=== PATIENT | male | born 1950 | race Caucasian/White ===

== ENCOUNTER 2017-04-15 12:41 | Emergency (ER) | payer MEDICAID ==
[~2017-04-15] VITALS: Ht 172.7 cm; Wt 58.1 kg
[~2017-04-15 12:41] MED LIST: CITA20TA9 PO; DIVA500T2 PO; PHEN50TA4 PO; TOPI100T24 PO
[2017-04-15 12:51] VITALS: BP 117/78
[2017-04-15] MEDS ORDERED: DIPH,PERTUSS(ACELL),TET VAC/PF 0.5 ML IM-VACC ONE ×2 (13:00→13:17)
[2017-04-15] MEDS ORDERED: ACETAMINOPHEN 500 MG TABLET PO ONE (13:00)
[2017-04-15] MEDS ORDERED: ACETAMINOPHEN 500 MG TABLET ONE (13:17)
[2017-04-15 13:20] LABS: HEMATOCRIT 44.2 % (39.2-51.8); HEMOGLOBIN 14.8 g/dL (13.7-18.0); WHITE BLOOD COUNT 6.4 x10^3/uL (3.4-10)
[2017-04-15 13:31] LABS: BLOOD UREA NITROGEN 24 mg/dL (7-18)
== END 2017-04-15 14:32 | disposition home or self-care (01) ==
LOC: ED 14:24
DX: S09.90XA Unspecified injury of head, initial encounter (principal); S00.01XA Abrasion of scalp, initial encounter; S40.211A Abrasion of right shoulder, initial encounter; G40.909 Epilepsy, unspecified, not intractable, without status epilepticus; F03.90 Unspecified dementia, unspecified severity, without behavioral disturbance, psychotic disturbance, mood disturbance, and anxiety; W01.0XXA Fall on same level from slipping, tripping and stumbling without subsequent striking against object, initial encounter; Y93.01 Activity, walking, marching and hiking; Y92.89 Other specified places as the place of occurrence of the external cause; Y99.8 Other external cause status; Z86.73 Personal history of transient ischemic attack (TIA), and cerebral infarction without residual deficits
CPT/HCPCS: 36415; 70450; 80048; 82040; 85025; 90471; 90715